=== PATIENT | male | born 1975 ===

== ENCOUNTER 2022-08-26 20:42 | Emergency (ER) | payer OTHER ==
[~2022-08-26] VITALS: Ht 88.9 cm; Wt 68.0 kg
[2022-08-26] MEDS ORDERED: NASAL MIST126 ML (20:50)
[2022-08-26] MEDS ORDERED: PROZAC40 MG PO (20:50)
[2022-08-26] MEDS ORDERED: RESTORIL15 M1 PO (20:50)
== END 2022-08-27 | disposition home or self-care (01) ==
LOC: ER 20:42
DX: S09.8XXS Other specified injuries of head, sequela (principal); X58.XXXS Exposure to other specified factors, sequela; R60.0 Localized edema; Z88.0 Allergy status to penicillin